=== PATIENT | female | born 1980 | race Caucasian/White ===

== ENCOUNTER 2018-05-17 04:56 | Emergency (ER) | payer OTHER ==
[~2018-05-17] VITALS: Ht 160 cm; Wt 84.0 kg
[2018-05-17 08:12] VITALS: BP 103/61
== END 2018-05-17 08:15 | disposition home or self-care (01) ==
LOC: EME 04:56
DX: G43.909 Migraine, unspecified, not intractable, without status migrainosus (principal); Z88.0 Allergy status to penicillin
CPT/HCPCS: 99281; 99284; J1885; J2765; J7030